=== PATIENT | male | born 1995 | race Caucasian/White ===

== ENCOUNTER → 2017-02-03 | Outpatient (CLI) | payer OTHER ==
[2015-05-12 16:23] VITALS: BP 150/68
[~2017-02-03] MED LIST: IOHEXOL 300 MG/ML 75 ML VIAL. IV ONE; PERM60CR12 TP; PRED20TA PO
--- NOTE | 2017-02-03 16:22 | RAD ---
CT of the chest with contrast 02/03/2017 Indication: Hemoptysis Comparison study: None Discussion: Multidetector CT imaging of the chest was performed following the administration of intravenous contrast. Findings: Contrast bolus timing is suboptimal for evaluation of vascular structures. No gross abnormalities are appreciated. Heart size is normal. No pericardial effusion is identified. No mediastinal adenopathy is identified. Visualized central airways are patent. No evidence of hemorrhage or debris within central airways is identified I CT. There is no pneumothorax, pleural effusion, or focal infiltrate. No pulmonary masses are identified. Small calcified lymph nodes are noted in the perihilar region extending to the right lower lobe which are suggestive of prior granulomatous disease. Calcified granulomas also noted in the parenchyma of the right lower lobe. Limited visualization of the upper abdomen demonstrates no acute abnormalities. No acute osseous abnormalities are identified. Impression: No CT evidence of acute cardiopulmonary abnormality. PQRS Compliance Statement: One or more of the following individualized dose reduction techniques were utilized for this examination: 1. Automated exposure control 2. Adjustment of the mA and/or kV according to patient size 3. Use of iterative reconstruction technique
== END | disposition home or self-care (01) ==
LOC: CT 12:35
PROVIDERS: ATTEND Nurse Practitioner Family
DX: J98.4 Other disorders of lung (principal); R04.2 Hemoptysis; R06.09 Other forms of dyspnea; I89.8 Other specified noninfective disorders of lymphatic vessels and lymph nodes; Z72.0 Tobacco use
CPT/HCPCS: 71260; Q9967

== ENCOUNTER 2018-04-04 20:37 | Emergency (ER) | payer OTHER ==
[~2018-04-04] VITALS: Ht 185.4 cm; Wt 113.9 kg
[~2018-04-04 20:37] MED LIST changes: -IOHEXOL 300 MG/ML 75 ML VIAL. IV ONE
--- NOTE | 2018-04-04 21:18 | PHYS DOC ---
Past History Past Medical History: No Pertinent History Past Surgical History: Other Additional Smoking Information: 1 PPD Alcohol Use: None Drug Use: None Adult General Chief Complaint Chief Complaint: SORE THROAT HPI HPI 23-year-old male presents with progressive sore throat for the last 3 days. The patient stated is now difficult to swallow. He has not had a change in his cough. He coughs at baseline and is a smoker. Today he had a fever of 102. He did not take any medications prior to coming to the ED. He did have a fever in the ED. Patient is unsure of sick contacts. He has had strep in the past, but not frequently. He has been able to eat and drink. Review of Systems Review of Systems Constitutional: Denies fever or chills [] Eyes: Denies change in visual acuity, redness, or eye pain [] HENT: Sore throat [] Respiratory: Denies cough or shortness of breath [] Cardiovascular: No additional information not addressed in HPI [] GI: Denies abdominal pain, nausea, vomiting, bloody stools or diarrhea [] : Denies dysuria or hematuria [] Musculoskeletal: Denies back pain or joint pain [] Integument: Denies rash or skin lesions [] Neurologic: Denies headache, focal weakness or sensory changes [] Endocrine: Denies polyuria or polydipsia [] All other systems were reviewed and found to be within normal limits, except as documented in this note. Allergies Allergies Allergies Coded Allergies Type Severity Reaction Last Updated Verified No Known Drug Allergies 06/11/14 No Physical Exam Physical Exam Constitutional: Well developed, well nourished, no acute distress, non-toxic appearance. Fever [] HENT: Normocephalic, atraumatic, bilateral external ears normal, oropharynx erythematous, nose normal. [] Eyes: PERRLA, EOMI, conjunctiva normal, no discharge. [] Neck: Anterior cervical lymphadenopathy worse on the right.[] Cardiovascular:Heart rate regular rhythm, no murmur [] Lungs & Thorax: Bilateral breath sounds clear to auscultation [] Abdomen: Bowel sounds normal, soft, no tenderness, no masses, no pulsatile masses. [] Skin: Warm, dry, no erythema, no rash. [] Back: No tenderness, no CVA tenderness. [] Extremities: No tenderness, no cyanosis, no clubbing, ROM intact, no edema. [] Neurologic: Alert and oriented X 3, normal motor function, normal sensory function, no focal deficits noted. [] Psychologic: Affect normal, judgement normal, mood normal. [] Current Patient Data Vital Signs Vital Signs Date Time Temp Pulse Resp B/P (MAP) Pulse Ox O2 Delivery O2 Flow Rate FiO2 04/04/18 20:41 102.4 117 20 96 Room Air EKG EKG [] Radiology/Procedures Radiology/Procedures [] Course & Med Decision Making Course & Med Decision Making Pertinent Labs and Imaging studies reviewed. (See chart for details) Patient is negative for mono, rapid strep, and influenza. I'm still highly suspicious for strep pharyngitis so I will treat him with penicillin for 10 days. [] Dragon Disclaimer Dragon Disclaimer This electronic medical record was generated, in whole or in part, using a voice recognition dictation system. Departure Departure: Impression: Primary Impression: Strep pharyngitis Disposition: 01 HOME, SELF-CARE Condition: STABLE Referrals: NON,STAFF (PCP) Patient Instructions: Strep Throat, Ihqz-ys-Lido Scripts Penicillin V Potassium (PENICILLIN V POTASSIUM) 500 Mg Tablet 1 TAB PO BID for strep pharyngitis, #20 TAB Prov: FRANCESCO GARDUNO DO 04/04/18 FRANCESCO GARDUNO DO Apr 04, 2018 21:18
[2018-04-04] MEDS ORDERED: ACETAMINOPHEN 325 MG TABLET PO ONE (21:30)
[2018-04-04] MEDS ORDERED: IV NORMAL SALINE 1,000ML 1,000 ML IV ONE (21:45)
[2018-04-04] MEDS ORDERED: KETOROLAC 30 MG/ML VIAL. IV ONE (21:45)
[2018-04-04 21:46] LABS: INFLUENZA A PATIENT NEGATIVE (NEGATIVE); INFLUENZA B PATIENT NEGATIVE (NEGATIVE)
[2018-04-04 21:57] LABS: MONONUCLEOSIS PATIENT NEGATIVE (NEGATIVE)
[2018-04-04] MEDS ORDERED: PENI500T PO (22:15)
[2018-04-04] MEDS ORDERED: PENICILLIN V K 250 MG TABLET. PO ONE (22:15)
[2018-04-04] MEDS ORDERED: PENICILLIN V K 250 MG TABLET. ONE ×2 (22:21→22:24)
[2018-04-04 22:29] VITALS: BP 131/57
== END 2018-04-04 22:24 | disposition home or self-care (01) ==
LOC: ER 20:37
DX: J02.0 Streptococcal pharyngitis (principal); B95.5 Unspecified streptococcus as the cause of diseases classified elsewhere; F17.200 Nicotine dependence, unspecified, uncomplicated
CPT/HCPCS: 86308; 87070; 87804; 87880; 96374; 99283; J1885; J7030

== ENCOUNTER 2019-10-01 13:42 | Emergency (ER) | payer OTHER ==
[~2019-10-01] VITALS: Ht 185.4 cm; Wt 121.3 kg
[~2019-10-01 13:42] MED LIST changes: +PENI500T PO
[2019-10-01 13:49] VITALS: BP 131/57
--- NOTE | 2019-10-01 13:55 | PHYS DOC ---
Past History Past Medical History: No Pertinent History Past Surgical History: Other Alcohol Use: None Drug Use: None General Adult EDM: Chief Complaint: LACERATION/AVULSION HPI: HPI: Patient is a 24-year-old male who presents to the emergency department for evaluation of a laceration on his left thumb, he states about 930 or 10 AM this morning he was using a razor blade at work when he sliced his finger. He sustained a 2 cm vertically oriented laceration just proximal to his nailbed on his left first digit. He denies any numbness, weakness, or any other painful areas. There are no alleviating or exacerbating factors to his symptoms. He is uncertain of when his last tetanus was. Review of Systems: Review of Systems: Musculoskeletal: Denies back pain or joint pain Integument: Denies rash Neurologic: Denies focal weakness or sensory changes Heart Score: Risk Factors: Risk Factors: DM, Current or recent (<one month) smoker, HTN, HLP, family hist ory of CAD, obesity. Risk Scores: Score 0 - 3: 2.5% MACE over next 6 weeks - Discharge Home Score 4 - 6: 20.3% MACE over next 6 weeks - Admit for Clinical Observation Score 7 - 10: 72.7% MACE over next 6 weeks - Early Invasive Strategies Allergies: Allergies: Allergies Coded Allergies Type Severity Reaction Last Updated Verified No Known Drug Allergies 06/11/14 No Physical Exam: PE: PHYSICAL EXAM: HEENT: Atruamatic NECK: Supple, normal ROM, non-tender. CARDIAC: Regular Rate and Rhythm LUNGS: Clear Bilaterally EXTREMITIES: There is a 2 cm superficial laceration proximal to the nailbed on the left thumb, there is full range of motion in the IP joint of the thumb, distal capillary refill and sensation and motor function is normal. The remainder the digits are atraumatic. EKG: EKG: [] Radiology/Procedures: Radiology/Procedures: [] Course & Med Decision Making: Course & Med Decision Making PROCEDURE NOTE: The patient's wound was cleansed with Shur-Clens and saline, the 2 cm left thumb laceration was closed with Dermabond. The thumb will be splinted with the IP joint in extension. I discussed wound care with the patient and the need for close follow-up and return precautions. Calixto Disclaimer: Calixto Disclaimer: This electronic medical record was generated, in whole or in part, using a voice recognition dictation system. Departure Departure: Impression: Primary Impression: Thumb laceration Disposition: 01 HOME/RESIDENCE PRIOR TO ADM Condition: STABLE Patient Instructions: Laceration Care, Adult, Tissue Adhesive Wound Care Justification of Admission: Justification of Admission: Justification of Admission Dx: N/A JJ SEPULVEDA MD Oct 01, 2019 13:55
[2019-10-01] MEDS ORDERED: DIPH,PERTUSS(ACELL),TET VAC/PF 0.5 ML SYRINGE. VAX IM ONE ×2 (14:04→14:15)
== END 2019-10-01 14:13 | disposition home or self-care (01) ==
LOC: ER 13:42
DX: S61.012A Laceration without foreign body of left thumb without damage to nail, initial encounter (principal); W26.9XXA Contact with unspecified sharp object(s), initial encounter; Y93.89 Activity, other specified; Y92.89 Other specified places as the place of occurrence of the external cause; Y99.8 Other external cause status
CPT/HCPCS: 12001; 90471; 90715; 99283

== ENCOUNTER 2020-08-03 12:01 | Emergency (ER) | payer OTHER ==
[~2020-08-03] VITALS: Ht 185.4 cm; Wt 114.3 kg
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
[2020-08-03] MEDS ORDERED: IBUPROFEN 600 MG TABLET. PO ONE (12:30)
--- NOTE | 2020-08-03 12:45 | RAD ---
Study: XR SHOULDER_LEFT 2+ VIEWS Indication: Fall. Left shoulder pain. Comparison: None. Findings: Glenohumeral and acromioclavicular joint alignment is anatomic. No acute fracture. The partially asse ssed left-sided ribs are grossly intact. Impression: No fracture or malalignment. Electronically signed by: SIRISHA SAUCEDO MD (08/03/2020 12:42 PM) [id number]
[2020-08-03] MEDS ORDERED: MUPI1OIN6 TP (13:07)
[2020-08-03] MEDS ORDERED: MUPIROCIN 2% TOPICAL OINTMENT 22GM TUBE. TP ONE (13:15)
[2020-08-03 13:20] VITALS: BP 118/68
[2020-08-03] MEDS ORDERED: HYDR-2155 PO (13:26)
[2020-08-03] MEDS ORDERED: MUPIROCIN 2% TOPICAL OINTMENT 22GM TUBE. TP SCH (21:00)
== END 2020-08-03 13:30 | disposition home or self-care (01) ==
LOC: ER 12:01
DX: T22.20XA Burn of second degree of shoulder and upper limb, except wrist and hand, unspecified site, initial encounter (principal); X16.XXXA Contact with hot heating appliances, radiators and pipes, initial encounter; Y93.89 Activity, other specified; Y92.89 Other specified places as the place of occurrence of the external cause; Y99.8 Other external cause status
CPT/HCPCS: 16020; 73030; 99283

== ENCOUNTER 2020-11-19 07:51 | Emergency (ER) | payer OTHER ==
[~2020-11-19] VITALS: Ht 188 cm; Wt 121.0 kg
[~2020-11-19 07:51] MED LIST changes: +HYDR-2155 PO; +MUPI1OIN6 TP
[2020-11-19 08:14] VITALS: BP 121/77
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
[2020-11-19] MEDS ORDERED: CYCL5TAB PO (08:44)
[2020-11-19] MEDS ORDERED: ACETAMINOPHEN 325 MG TABLET PO ONE (08:45)
[2020-11-19] MEDS ORDERED: IBUPROFEN 600 MG TABLET. PO ONE (08:45)
== END 2020-11-19 09:16 | disposition home or self-care (01) ==
LOC: ER 07:51
DX: S16.1XXA Strain of muscle, fascia and tendon at neck level, initial encounter (principal); V43.62XA Car passenger injured in collision with other type car in traffic accident, initial encounter; Y93.89 Activity, other specified; Y92.89 Other specified places as the place of occurrence of the external cause; Y99.8 Other external cause status
CPT/HCPCS: 70450; 72125; 99285-25